=== PATIENT | female | born 1965 | race Caucasian/White ===

== ENCOUNTER → 2021-01-04 14:19 | Outpatient (BNVA) | payer BC, SELFPAY | PROVIDERS: PCP Family Medicine; Visit Provider Family Medicine | DX: E03.9 Hypothyroidism, unspecified (principal); J45.909 Unspecified asthma, uncomplicated | CPT/HCPCS: 80053; 80061; 83036; 84443 ==

== ENCOUNTER → 2021-06-24 11:28 | Outpatient (BNVA) | payer BC, SELFPAY | PROVIDERS: PCP Family Medicine; Visit Provider Family Medicine | DX: M25.531 Pain in right wrist (principal) | CPT/HCPCS: 73100; 80053; 83036; 84443 ==

== ENCOUNTER → 2022-01-20 09:28 | Outpatient (BNVA) | payer BC, SELFPAY | PROVIDERS: PCP Family Medicine; Visit Provider Nurse Practitioner | DX: Z79.899 Other long term (current) drug therapy (principal) | CPT/HCPCS: 80076 ==

== ENCOUNTER → 2022-01-21 11:06 | Outpatient (BNVA) | payer BC, SELFPAY | PROVIDERS: PCP Family Medicine; Visit Provider Nurse Practitioner | DX: Z79.899 Other long term (current) drug therapy (principal) | CPT/HCPCS: 80076 ==

== ENCOUNTER 2022-02-10 17:38 | Emergency (ER) | payer BC, MEDICAID, SELFPAY ==
[2022-02-10 18:37] VITALS: BP 155/86; PULSE 87; O2SAT 93
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
[2022-02-10] MEDS: HYDROcodone-acetaminophen 5-325 mg Tablet 1 TAB PO (19:13)
[2022-02-10 20:28] VITALS: BP 151/85; PULSE 71; RESP 16; O2SAT 99
[2022-02-10 21:32] VITALS: BP 156/90; PULSE 71; RESP 18; TEMP 36.7; O2SAT 97
== END 2022-02-10 21:34 | disposition home or self-care (01) ==
PROVIDERS: Emergency Provider Emergency Medicine; PCP Family Medicine
DX: S13.4XXA Sprain of ligaments of cervical spine, initial encounter (principal); V89.2XXA Person injured in unspecified motor-vehicle accident, traffic, initial encounter
CPT/HCPCS: 70450; 71250; 72125; 99284

== ENCOUNTER 2022-04-15 13:51 | Outpatient (CLI) | payer BC, MEDICAID, SELFPAY ==
--- NOTE | 2022-04-15 14:15 | USCV_ITS ---
Elmira Orta Age: 57 Gender: F : 1965 Exam Date: 04/15/2022 15:08 Ordering Phys: Beverly Huffman Technologist: MONTY Exam Location: [facility] [place] Indication: new onset svt, nsvt BP: / HR: 65 Rhythm: Sinus Technical Quality: Adequate MEASUREMENTS (Male / Female) Normal Values 2D ECHO LV Diastolic Diameter PLAX 5.1 cm 4.2 - 5.9 / 3.9 - 5.3 cm LV Systolic Diameter PLAX 2.9 cm IVS Diastolic Thickness 0.5 cm 0.6 - 1.0 / 0.6 - 0.9 cm IVS Systolic Thickness 0.9 cm LVPW Diastolic Thickness 0.5 cm 0.6 - 1.0 / 0.6 - 0.9 cm LVPW Systolic Thickness 1.1 cm LVOT Diameter 2.0 cm LV Ejection Fraction 2D Teich 73.6 % LV Ejection Fraction MOD 2C 53.9 % LV Ejection Fraction 2C AL 55.2 % LA Diameter 3.4 cm IVC Diameter 1.2 cm M-MODE Aortic Annulus Diameter 2.7 cm LA Ao Ratio MM 1.4 MV E Point Septal Separation 0.9 cm DOPPLER AV Peak Velocity 144.0 cm/s LVOT Peak Velocity 102.0 cm/s AV Area Cont Eq vti 1.9 cm squared AV Area Cont Eq pk 2.1 cm squared MV Area PHT 5.0 cm squared Mitral E to A Ratio 0.8 MV E' Velocity 43.5 cm/s Mitral E to MV E' Ratio 7.5 Mitral E to LV E' Lateral Ratio 6.9 Mitral E to LV E' Septal Ratio 8.1 TR Peak Velocity 255.6 cm/s TR Peak Gradient 26.1 mmHg TV Peak E Velocity 61.0 cm/s Right Atrial Pressure 3.0 mmHg Pulmonary Artery Systolic Pressu 29.1 mmHg PV Peak Velocity 113.0 cm/s FINDINGS Left Ventricle Normal left ventricular size, systolic function and wall thickness, with no regional wall motion abnormalities. Normal left ventricular wall thickness. Normal diastolic filling pattern. Left ventricular ejection fraction is estimated at 60 %. Right Ventricle The right ventricle is normal in size and function. Normal right ventricular systolic pressure. Right Atrium The right atrium is normal in size. Left Atrium The left atrium is normal in size. Mitral Valve Structurally normal mitral valve. Mild mitral valve regurgitation. Aortic Valve Structurally normal aortic valve without significant sclerosis or stenosis. There is no aortic regurgitation. Tricuspid Valve Structurally normal tricuspid valve without significant stenosis or regurgitation. Pulmonary artery systolic pressure is normal. Pulmonic Valve Structurally normal pulmonic valve without significant stenosis. There is no pulmonic regurgitation. Pericardium Normal pericardium without effusion. Aorta Normal ascending aorta dimension. IVC The inferior vena cava appears normal. CONCLUSIONS Normal left ventricular size, systolic function and wall thickness, with no regional wall motion abnormalities. Normal left ventricular wall thickness. Normal diastolic filling pattern. Left ventricular ejection fraction is estimated at 60 %. Structurally normal mitral valve. Mild mitral valve regurgitation. There are no prior echocardiogram studies to compare. Dr. Geovanny Ruiz MD (Electronically Signed) Final Date: 15 April 2022 17:34 S
== END 2022-04-15 13:52 | disposition home or self-care (01) ==
LOC: RAD 13:52
PROVIDERS: PCP Family Medicine; Visit Provider Nurse Practitioner Family
DX: I47.1 Supraventricular tachycardia (principal); I47.29 Other ventricular tachycardia; I34.0 Nonrheumatic mitral (valve) insufficiency
CPT/HCPCS: 93306

== ENCOUNTER 2022-05-12 08:44 | Outpatient (CLI) | payer BC, MEDICAID, SELFPAY ==
--- NOTE | 2022-05-12 | ECG_ITS ---
[facility] Test Date: 2022-05-12 Pat Name: Elmira Orta Department: Room: Gender: Female Director Mission: Elizabet CarrollTre : 1965 Requested By: Beverly Huffman Order Number: [id number] Gordon MD: Penelope Ortiz M.D. Interpretive Statements NAME OF STUDY: EXERCISE SESTAMIBI STRESS TEST INDICATION: New Onset SVT, vtach Baseline blood pressure of 150/87 mm Hg, heart rate 68 beats per minute and oxygen saturation of 97%. EKG showed sinus rhythm with normal ST-Ts. [] . ??? The patient exercised for 5 min 32 seconds on a [standard Charles protocol]. Patient attained a maximum heart rate of 164 beats per minute( 101 % of the maximum predicted heart rate) with a blood pressure at the peak exercise of 174/55 mm Hg and oxygen saturation of 97%. The EKG at the peak exercise revealed sinus tachycardia with 1 and 1/2 to [address] depression in inferolateral leads. Patient did not have any chest pain or any significant arrhythmis with the exercise.??? During the recovery phase, there were no new changes. ??? Blood pressure at the end of the recovery phase was 130/79 mm Hg with a heart rate of 97 beats per minute. ??? CONCLUSION: 1. Equivocal EKG response to treadmill exercise. 2. No exercise-induced chest pain or cardiac arrhythmia. 3. Fair exercise tolerance, attained a maximum of 7 METs. 4. Baseline hypertension with normal response to exercise. 5. Perfusion scan will be documented separately. Electronically Signed On 05-29-2022 9:45:34 ENERGY CONTROL OFFICER by Penelope Ortzi M.D. [id number]
[2022-05-12 09:16] VITALS: BMI 26.6
--- NOTE | 2022-05-12 09:17 | NMCV_ITS ---
NM christine perf SPECT r/s* [id number] Elmira Orta Age: 57 Gender: F : 1965 Exam Date: 05/12/2022 10:13 Ordering Phys: Beverly Huffman Technologist: CHRISTY Christie Exam Location: [facility] Indications: VENTRICULAR TACHYCARDIA STRESS TEST Please see separate stress test report in [facility] for full findings IMAGE PROTOCOL Rest/Stress 1 Exercise Day Radiopharmaceutical Dose (mCi) Administration Site Administered by Rest: Tc-99m 10.3 IV CHRISTY Patel Sestamiangle Stress:Tc-99m 32.7 IV CHRISTY Patel Sestamibi Rest: 12-May-2022 60 Discovery 630 Stress: 12-May-2022 15 Discovery 630 Radiopharmaceutical was injected at 99 % maximum heart rate. Images obtained in supine and prone position. SPECT RESULTS Technical Quality: Excellent Raw Data Analysis: Normal Image Corrections: No attenuation or motion correction applied Summed Stress Score: 0 Summed Rest Score: 0 Summed Difference Score: 0 PERFUSION FINDINGS SPECT images demonstrate homogeneous tracer distribution throughout the myocardium. FUNCTIONAL RESULTS (calculated via Gated SPECT) Stress Image LV EF (%): 71 Stress EDV (mL):79 TID: 0.96 Stress ESV (mL):23 FUNCTIONAL FINDINGS: There is normal left ventricular systolic function. IMPRESSIONS 1. Normal myocardial perfusion imaging with no evidence of ischemia 2. LV systolic function is normal Edmundo Hendricks MD (Electronically Signed) Final Date: 16 May 2022 16:03 S
[2022-05-12 11:09] VITALS: BP 130/79; PULSE 96
== END 2022-05-12 08:45 | disposition home or self-care (01) ==
LOC: CDL 08:48
PROVIDERS: PCP Family Medicine; Visit Provider Nurse Practitioner Family
DX: I47.29 Other ventricular tachycardia (principal); I47.1 Supraventricular tachycardia; R06.02 Shortness of breath
CPT/HCPCS: 36415; 78452; 93017; A9500

== ENCOUNTER 2022-05-23 13:48 | Outpatient (CLI) | payer BC, MEDICAID, SELFPAY ==
--- NOTE | 2022-05-23 14:04 | XR_ITS ---
WS: [id number] Lumbar spine, 3 views, 05/23/2022 Clinical Data: M54.9 - Dorsalgia, unspecified Comparison: None. Findings: No compression fractures or subluxation is seen. There is degenerative disc narrowing at L5-S1. There are anterior osteophytes at L5 and S1. The transverse processes and SI joints are normal. XR/XR lumbar spine 2-3V* [id number] Impression: Degenerative disc narrowing at L5-S1 with anterior spurs.
== END 2022-05-23 13:49 | disposition home or self-care (01) ==
LOC: RAD 13:50
PROVIDERS: PCP Family Medicine; Visit Provider Nurse Practitioner
DX: M48.07 Spinal stenosis, lumbosacral region (principal)
CPT/HCPCS: 72100

== ENCOUNTER 2022-05-26 12:06 | Outpatient (CLI) | payer BC, MEDICAID, SELFPAY ==
[2022-05-26] MEDS: iohexol 350 mg/mL 500 mL Btl (per mL) IV (12:54)
--- NOTE | 2022-05-26 13:30 | CT_ITS ---
WS: [id number] CT ABDOMEN AND PELVIS WITH CONTRAST HISTORY: K76.89 - Other specified diseases of liver TECHNIQUE: Imaging performed of the abdomen and pelvis with IV contrast. Single phase imaging of the abdomen. Coronal and sagittal reformats are submitted. All CT scans at [facility] use at [address] one of these dose optimization techniques: automated exposure control; mA and/or kV adjustment per patient size (includes targeted exams where dose is matched to clinical indication); or iterative re construction. IV CONTRAST: Omnipaque 350; 95 mL IV. Oral contrast: Yes. DLP: 516.35 mGy.cm COMPARISON: Prior chest CT 03/02/2022. Lower thorax: Lung bases are clear. Heart is normal size. No hiatal hernia. Liver/biliary system: Normal size liver. There are multiple low-attenuation masses within the liver. Most consistent with small hepatic cysts. The largest towards the superior diaphragmatic surface henna ures 14 mm. No solid mass. No portal vein thrombosis. There is very minimal slight central bile duct dilatation. May be normal for this patient. Common bile duct measures 6 to 7 mm which is normal. Gallbladder: Normal. No gallstones or wall thickening. No pericholecystic fluid. Pancreas: Normal size pancreas and pancreatic duct. No adjacent inflammation. Spleen: Normal size spleen. No mass or infarct. Adrenal glands: Normal. Right kidney: Numerous cysts throughout the kidney. Some of these are too small to characterize. No s olid mass or obstruction. Left kidney: Numerous cysts throughout the kidney. The largest measures 4.8 x 4.7 cm. Some of these c ysts are too small to characterize. No obstruction. Aorta: Atherosclerosis aorta. No aneurysm. Lymphadenopathy: None. Free fluid: None. GI tract: Negative stomach and small bowel. Normal appendix. Mild thickening of the distal colon muco sa is probably due to underdistention. No adjacent inflammation. Abdominal wall: Fat containing umbilical hernia. Pelvis: No free fluid or adenopathy within the pelvis. Bones: Unremarkable. CT/CT abdomen pelvis w con* [id number] IMPRESSION: 1. Hepatic and renal cysts. No solid masses are identified. Some of the cysts are too small to characterize. 2. Normal appendix. 3. No adenopathy or ascites. 4. Small umbilical hernia.
== END 2022-05-26 12:07 | disposition home or self-care (01) ==
LOC: RAD 12:09
PROVIDERS: PCP Family Medicine; Visit Provider Family Medicine
DX: K76.89 Other specified diseases of liver (principal); N28.1 Cyst of kidney, acquired; R16.0 Hepatomegaly, not elsewhere classified; K42.9 Umbilical hernia without obstruction or gangrene
CPT/HCPCS: 74177; Q9967

== ENCOUNTER → 2022-06-13 09:48 | Outpatient (BNVA) | payer BC, MEDICAID, SELFPAY | PROVIDERS: PCP Family Medicine; Visit Provider Family Medicine | DX: E03.9 Hypothyroidism, unspecified (principal) | CPT/HCPCS: 84443 ==

== ENCOUNTER → 2022-09-13 16:02 | Outpatient (BNVA) | payer BC, MEDICAID, SELFPAY | PROVIDERS: PCP Family Medicine; Visit Provider Family Medicine | DX: E66.3 Overweight (principal) | CPT/HCPCS: 80048; 85025 ==

== ENCOUNTER → 2022-12-09 11:20 | Outpatient (BNVA) | payer BC, MEDICAID, SELFPAY | PROVIDERS: PCP Family Medicine; Visit Provider Family Medicine | DX: G25.81 Restless legs syndrome (principal); N18.9 Chronic kidney disease, unspecified | CPT/HCPCS: 80053; 82728; 83540; 83735; 85025 ==

== ENCOUNTER → 2023-03-02 14:40 | Outpatient (BNVA) | payer BC, MEDICAID, SELFPAY | PROVIDERS: PCP Family Medicine; Visit Provider Physician Assistant | DX: M75.101 Unspecified rotator cuff tear or rupture of right shoulder, not specified as traumatic (principal); M12.811 Other specific arthropathies, not elsewhere classified, right shoulder; M25.511 Pain in right shoulder; M54.12 Radiculopathy, cervical region | CPT/HCPCS: 72050; 73030 ==

== ENCOUNTER 2023-04-06 15:03 | Outpatient (CLI) | payer BC, MEDICAID, SELFPAY ==
--- NOTE | 2023-04-06 15:15 | MR_ITS ---
WS: [id number] MRI CERVICAL SPINE NONCONTRAST HISTORY: shoulder pain COMPARISON: None available. Technique: Multiplanar, multisequence noncontrast imaging of the cervical spine. Reversal of the normal cervical lordosis. Disc spaces are mildly narrowed and desiccated. There is some very slight increased T2 signal within the cervical cord. This is throughout the length of the cervical cord and may be artifact. There is no cord atrophy or enlargement. Craniocervical junction, C1 and C2 relationship, odontoid process and soft tissues are normal. C2-C3: Normal. C3-C4: Mild annular disc bulging and osteophytic ridging. Mild disc encroachment upon the ventral the josefina sac and a shallow central disc protrusion. Very mild RIGHT foraminal narrowing. C4-C5: Mild annular disc bulging and osteophytic ridging. Mild osteophyte encroachment upon the ventr al thecal sac. There is a mild central and bilateral foraminal stenosis. C5-C6: Mild osteophytic ridging and facet arthritis. Mild central with moderate bilateral foraminal s tenosis is predominantly due to the osteophytes. C6-C7: Mild annular disc bulging and osteophytic ridging. C7-T1: Normal. Paraspinal soft tissue are normal. IMPRESSION: 1. Reversal of the normal cervical lordosis. 2. Mild disc base narrowing and osteophytosis throughout the cervical spine. 3. C5-6: Moderate bilateral foraminal and mild central stenosis. Predominately due to osteophyte encr oachment. 4. C3-4: Shallow central disc protrusion and mild RIGHT foraminal narrowing. 5. C4-5: Mild central and bilateral foraminal stenosis. 6. There is increased T2 signal within the cervical cord but no cord atrophy or enlargement. I suspec t this may be artifact due to the extensive involvement.
== END 2023-04-06 15:04 | disposition home or self-care (01) ==
LOC: RAD 15:04
PROVIDERS: PCP Family Medicine; Visit Provider Physician Assistant
DX: M48.02 Spinal stenosis, cervical region (principal); M25.78 Osteophyte, vertebrae; M50.21 Other cervical disc displacement, high cervical region; M25.511 Pain in right shoulder
CPT/HCPCS: 72141

== ENCOUNTER 2023-04-06 15:03 | Outpatient (CLI) | payer BC, MEDICAID, SELFPAY ==
--- NOTE | 2023-04-06 16:00 | MR_ITS ---
WS: [id number] MRI RIGHT SHOULDER HISTORY: shoulder pain COMPARISON: None available. TECHNIQUE: Multiplanar sequences of the shoulder joint are submitted. Marked AC joint degenerative changes. There is also edema within the capsule at the AC joint and flui d along the AC ligament with mild encroachment upon the myotendinous insertion. There is only a small amount of fluid in the subacromial and subdeltoid bursa. No significant subacromial impingement. No os acromion. Biceps tendon in good position. Small insertion site of the distal supraspinatus tendon with no retraction of the tendon. The remaini ng tendons are normal. There is no muscle atrophy or edema. No labral tear. IMPRESSION: 1. 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 Bone and soft tissue hypertrophy with encroachment up on the supraspinatus myotendinous insertion. 2. Small insertion site tear of the distal supraspinatus tendon. 3. No tendon retraction or muscle atrophy.
== END 2023-04-06 15:04 | disposition home or self-care (01) ==
LOC: RAD 15:04
PROVIDERS: PCP Family Medicine; Visit Provider Physician Assistant
DX: M12.811 Other specific arthropathies, not elsewhere classified, right shoulder (principal); M25.511 Pain in right shoulder; M75.101 Unspecified rotator cuff tear or rupture of right shoulder, not specified as traumatic
CPT/HCPCS: 73221

== ENCOUNTER → 2023-04-11 14:17 | Outpatient (BNVA) | payer BC, MEDICAID, SELFPAY | PROVIDERS: PCP Family Medicine; Visit Provider Orthopaedic Surgery | DX: M47.22 Other spondylosis with radiculopathy, cervical region; M19.011 Primary osteoarthritis, right shoulder | CPT/HCPCS: 72040; 73030 ==

== ENCOUNTER → 2023-04-19 09:41 | Outpatient (BNVA) | payer BC, MEDICAID, SELFPAY | PROVIDERS: PCP Family Medicine; Visit Provider Nurse Practitioner Family | DX: E03.9 Hypothyroidism, unspecified (principal); Z13.6 Encounter for screening for cardiovascular disorders; Z79.899 Other long term (current) drug therapy; E55.9 Vitamin D deficiency, unspecified | CPT/HCPCS: 80053; 80061; 81003; 82306; 83036; 84439; 84443; 84481; 85025 ==

== ENCOUNTER → 2024-08-22 10:42 | Outpatient (BNVA) | payer BC, MEDICAID, SELFPAY | PROVIDERS: PCP Nurse Practitioner Family; Visit Provider Nurse Practitioner Family | DX: E03.9 Hypothyroidism, unspecified (principal); E55.9 Vitamin D deficiency, unspecified; Z79.899 Other long term (current) drug therapy; Z13.6 Encounter for screening for cardiovascular disorders | CPT/HCPCS: 80053; 80061; 81003; 82306; 82728; 83036; 83550; 84443; 85025 ==

== ENCOUNTER → 2024-12-05 11:02 | Outpatient (BNVA) | payer BC, MEDICAID, SELFPAY | PROVIDERS: PCP Nurse Practitioner Family; Visit Provider Nurse Practitioner Family | DX: E03.9 Hypothyroidism, unspecified (principal); R73.09 Other abnormal glucose; D50.8 Other iron deficiency anemias | CPT/HCPCS: 83036; 83550; 84443 ==